=== PATIENT | female | born 1925 | race Caucasian/White ===

== ENCOUNTER 2016-11-14 03:35 | Emergency (ER) | payer MEDICARE, OTHER ==
[~2016-11-14 03:35] MED LIST: ACET500CAP PO; ALEVE220 MG PO; AMOXIL500C PO; CALTRA600D PO; CENTRUM TAB1 TAB PO; FISH-EPA1000 MG PO; GLUCCHONDR PO; PRAV10 PO; VITD PO; ZESTORETIC1 TAB PO
== END 2016-11-14 04:48 | disposition home or self-care (01) ==
LOC: ER 03:35
DX: S00.83XA Contusion of other part of head, initial encounter (principal); I10 Essential (primary) hypertension; F03.90 Unspecified dementia, unspecified severity, without behavioral disturbance, psychotic disturbance, mood disturbance, and anxiety; Z88.5 Allergy status to narcotic agent; Z88.8 Allergy status to other drugs, medicaments and biological substances; Z79.899 Other long term (current) drug therapy; W01.10XA Fall on same level from slipping, tripping and stumbling with subsequent striking against unspecified object, initial encounter
CPT/HCPCS: 70450; 72125; 99284